=== PATIENT | male | born 2005 | race Caucasian/White ===

== ENCOUNTER 2024-10-20 19:51 | Emergency (ER) | payer OTHER | END 2024-10-20 20:45 | disposition home or self-care (01) | LOC: FB.ED 19:51 | DX: S93.412A Sprain of calcaneofibular ligament of left ankle, initial encounter (principal); X50.1XXA Overexertion from prolonged static or awkward postures, initial encounter | CPT/HCPCS: 73610-LT; 99282; 99283 ==